=== PATIENT | male | born 1985 | race Two or more races ===

== ENCOUNTER 2018-06-29 08:20 | Outpatient (CLI) | payer OTHER ==
[~2018-06-29 08:20] MED LIST: CIPRO500 MG PO; COMPLERA TABLE1 EACH PO; PERCOCET 5/3251 TAB PO; RECTICARE30 GM TP
== END 2018-06-29 10:20 | disposition home or self-care (01) ==
LOC: LAB 08:20
DX: E78.1 Pure hyperglyceridemia (principal); Z87.11 Personal history of peptic ulcer disease

== ENCOUNTER 2018-06-29 09:05 | Outpatient (CLI) | payer OTHER | END 2018-06-29 09:23 | disposition home or self-care (01) | LOC: SONOGRAMA 09:05 | DX: Z87.11 Personal history of peptic ulcer disease (principal); K76.0 Fatty (change of) liver, not elsewhere classified ==

== ENCOUNTER 2024-08-23 15:24 | Outpatient (CLI) | payer OTHER ==
[2024-08-23 17:02] LABS: URINE APPEARANCE Clear; URINE BILIRRUBIN Negative (NEGATIVE); URINE BLOOD Negative; URINE COLOR Yellow; URINE GLUCOSE Negative (NEGATIVE); URINE KETONE Negative (NEGATIVE); URINE LEUKOCYTE Negative; URINE NITRATE Negative; URINE PROTEIN Negative (NEGATIVE); URINE UROBILINOGEN 0.2 E.U./dl
[2024-08-23 17:05] LABS: URINE BACTERIA 17.6 uL (0.0-1933); URINE EPITHELIAL CELLS 2.3 uL (0.0-38.8); URINE RBC 7.9 uL (0.0-20.8); URINE WBC 10.1 uL (0.0-23.2)
[2024-08-23 17:09] LABS: HEMATOCRIT 45.1 % (39.0-48.0); HEMOGLOBIN 16.1 g/dL (13-16.00); MEAN CELL VOLUME 92.6 fL (80.0-100.00); MEAN CORPUSCULAR HGB CONC 35.7 g/dl (32.0-36.0); PLATELET COUNT 333 K/uL (150-450); RED BLOOD COUNT 4.87 M/uL (4.00-6.00); RED CELL DISTRIBUTION WIDTH 12.1 % (11.5-14.5)
[2024-08-23 17:19] LABS: ERYTHROCYTE SEDIMENTATION RATE < 1 mm/hr
[2024-08-23 17:25] LABS: CALCIUM 9.2 mg/dL (8.5-10.1); CREATININE SERUM 0.95 mg/dL (0.70-1.30); GFR 88.72; POTASSIUM 3.73 mEq/L (3.5-5.1); PROSTATIC SPECIFIC ANTIGEN 0.932 NG/ML (0.010-4.00)
== END 2024-08-23 15:34 | disposition home or self-care (01) ==
LOC: LAB 15:24
PROVIDERS: ATTEND Internal Medicine Cardiovascular Disease
DX: N39.0 Urinary tract infection, site not specified (principal); N41.0 Acute prostatitis; N23 Unspecified renal colic; I10 Essential (primary) hypertension; N22 Calculus of urinary tract in diseases classified elsewhere

== ENCOUNTER 2024-08-23 15:49 | Outpatient (CLI) | payer OTHER | END 2024-08-23 16:00 | disposition home or self-care (01) | LOC: TOM 15:49 | PROVIDERS: ATTEND Internal Medicine Cardiovascular Disease | DX: M70.22 Olecranon bursitis, left elbow (principal); N23 Unspecified renal colic ==